=== PATIENT | female | born 2000 | race Caucasian/White ===

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

== ENCOUNTER 2021-05-31 03:30 | Outpatient (CLI) | payer OTHER, SELFPAY ==
[2021-05-31 10:28] LABS: HCT 40.8 % (36.0-46.0); HGB 14.1 g/dL (11.2-15.7); MCH 30.3 pg (27.0-33.0); MCHC 34.6 % (32.0-36.0); MCV 87.6 fL (80-95); Platelet Count 231 10^3/uL (130-400); RBC 4.66 10^6/uL (3.93-5.22); RDW 12.2 % (11.7-14.6); RDW-SD 39.4 fL; WBC 5.32 10^3/uL (4.4-10.8)
[2021-05-31 12:34] LABS: Source Nasal/Nares
[2021-05-31 16:48] LABS: COVID-19 PCR Negative (Negative)
== END 2021-05-31 03:31 | disposition home or self-care (01) ==
LOC: LBO 03:31
PROVIDERS: PCP Internal Medicine; Visit Provider Obstetrics & Gynecology
DX: T83.89XA Other specified complication of genitourinary prosthetic devices, implants and grafts, initial encounter (principal); Z20.822 Contact with and (suspected) exposure to COVID-19; Z01.818 Encounter for other preprocedural examination; Z01.812 Encounter for preprocedural laboratory examination
CPT/HCPCS: 36415; 85027; 86850; 86900; 86901; 87635

== ENCOUNTER 2021-06-02 06:19 | Day surgery (SDC) | payer OTHER, SELFPAY ==
[2021-06-02] VITALS (8 sets, daily range): BP systolic 93–125; BP diastolic 50–64; PULSE 66–101; RESP 16–22; TEMP 36.2–36.7; O2SAT 96–100; BMI 17.9
--- NOTE | 2021-06-02 07:07 | W.ANESPRE ---
General Info Date of Service Date Performed: 06/02/21 Height: 5 ft 7.5 in Weight: 52.6 kg Body Mass Index (BMI): 17.9 Surgical Procedure: Operation Date: 06/02/21 07:40 Proposed Procedures Side Surgeon p Diagnostic, POSSIBLE OPERATIVE LAPAROSCOPY DO martin Simon HYSTEROSCOPY DO martin Simon REMOVAL OF iud Cesilia Vargas DO Meds Allergies and Home Medications Allergies Allergy/AdvReac Type Severity Reaction Status Date / Time animal dander Allergy Itchy Eyes Verified 06/02/21 06:31 No Known Drug Allergies Allergy Verified 06/02/21 06:31 Home Medication Medication Instructions Recorded copper 380 square mm intrauterine 1 device INTRAUTERINE ONCE 04/15/21 device norgestimate 0.25 mg-ethinyl 1 tab PO DAILY #84 tab 04/19/21 estradiol 35 mcg tablet buspirone 30 mg PO BID 05/31/21 cholecalciferol (vitamin D3) 2,000 mcg PO DAILY 05/31/21 multivitamin 1 tab PO DAILY 05/31/21 sertraline 200 mg PO HS 05/31/21 Current Visit Medications: Current Medications Generic Name Dose Route Start Last Admin Trade Name Freq PRN Reason Stop Dose Admin Ringer's Solution 1,000 mls @ 125 mls/hr 06/02/21 06:00 IV 07/01/21 23:59 INFUSION MAULIK Doxycycline Hyclate 100 mg/ 100 mls @ 100 mls/hr 06/02/21 06:00 Sodium Chloride IVPB 06/02/21 16:00 PREOP MAULIK Sodium Chloride 1,000 mls @ 125 mls/hr 06/02/21 07:00 Saline 1000ml Bag IV INFUSION MAULIK IV Miscellaneous Supplies 1 each 06/02/21 06:00 Iv Access IV 07/01/21 23:59 DIRECTED MAULIK Sodium Chloride 0 ml 06/02/21 06:00 Normal Saline Flush 10 Ml Syr IV 07/01/21 23:59 PRN PRN Sodium Chloride 0 ml 06/02/21 06:00 Normal Saline 10 Ml Vial IJ 07/01/21 23:59 DIRECTED PRN Sterile Water 0 ml 06/02/21 06:00 Water,Injection,Sterile 10 Ml Vial IJ 07/01/21 23:59 DIRECTED PRN PFSH Active Problems Active Problems: Problem Status Onset Code IUD complication T83.9XXA Medical History Medical History Anxiety IUD complication OCD (obsessive compulsive disorder) Tobacco Smoking/Tobacco Use Status: Never Alcohol Alcohol Intake: never Substance Use Substance use type: does not use Vital Signs and Lab Results Vital Signs Most Recent Vital Signs in EMR: Most Recent Vital Signs Temp Pulse Resp BP Pulse Ox 36.7 C 72 18 104/62 97 06/02/21 06:33 06/02/21 06:33 06/02/21 06:33 06/02/21 06:33 06/02/21 06:33 Point of Care Results Point of Care Results: POC- Test(urine) Negative 06/02/21 06:52 Lab Results Blood Type / Crossmatch: Patient ABO/Rh O Positive 05/31/21 10:20 05/31/21 Antibody Screen NEGATIVE 05/31/21 10:20 05/31/21 Complete Blood Count: White Blood Count 5.32 10^3/uL (4.4-10.8) 05/31/21 10:20 05/31/21 Red Blood Count 4.66 10^6/uL (3.93-5.22) 05/31/21 10:20 05/31/21 Hemoglobin 14.1 g/dL (11.2-15.7) 05/31/21 10:20 05/31/21 Hematocrit 40.8 % (36.0-46.0) 05/31/21 10:20 05/31/21 Platelet Count 231 10^3/uL (130-400) 05/31/21 10:20 05/31/21 Complete Metabolic Panel: No Data to Display Liver Function Panel: No Data to Display Coagulation Panel: No Data to Display Cardiac Panel: No Data to Display Arterial Blood Gas: No Data to Display Venous Blood Gas: No Data to Display Pancreas Panel: No Data to Display Thyroid Panel: No Data to Display Infectious Disease: Coronavirus (COVID-19)(PCR) Negative (Negative) 05/31/21 10:31 05/31/21 Coronavirus 2019 Source Nasal/Nares 05/31/21 10:31 05/31/21 Blood Cultures: No Data to Display Toxicology Panel: No Data to Display Panel: No Data to Display Anesthesia Assessment and Plan Anesthesia History Personal History: No History of Anesthesia Complications Family History: No Family History of Anesthesia Complications Exercise Tolerance Exercise Tolerance: Metabolic Equivalents>4 Pertinent Negatives Pertinent Negatives: No Symptoms of GERD, No Major Cardiovascular Symptoms or Complaints, No Major Pulmonary Symptoms or Complaints and No History of CVA/TIA Cardiac & Pulmonary Exam Cardiac Exam: Normal S1/S2 Heart Sounds Pulmonary Exam: Clear Bilateral Breath Sounds Airway Exam Known Difficult Airway: No Mallampati Class: 1 Mouth Opening: Normal (> 3cm) Thyromental Distance: Greater than 3 cm Neck Range of Motion: Full ROM Neck Circumference: Normal Teeth Condition: Normal Dentition ASA Classification ASA Score: ASA 1 Emergency Case?: No NPO Status NPO Status: NPO Clears >2 hours, Solids >8 hours Status Status: Negative HCG Anesthesia Plan Resuscitation Status: Full Code Anesthesia Technique: General Anesthesia Airway Planned: Endotracheal Tube Monitors Used: Standard Monitors
[2021-06-02] MEDS: DOXYCYCLINE 100 MG in Normal Saline 100 ML IVPB (07:15)
[2021-06-02] MEDS: Normal Saline 1,000 ML 125 ML IV (07:17)
[2021-06-02] MEDS: Bupivacaine 0.5% Pres-Free 30 ML VIAL (08:00)
--- NOTE | 2021-06-02 08:40 | ROE_ITS ---
Date of service: 06/02/21 Time of Service: 08:40 Operative Note Operative Note DATE OF PROCEDURE: 06/02/21 PRE-OP DIAGNOSIS: Completion of intrauterine device with migration. Desires replacement POST-OP DIAGNOSIS: same PROCEDURE: Diagnostic laparoscopy with ParaGard IUD. Placement of Aliya IUD SURGEON: Cesilia Vargas SEISMIC PROSPECTING OBSERVER HELPER: Melida Phelan ANESTHESIA TYPE: General LMA/ETT Refer to Anesthesia Record ESTIMATED BLOOD LOSS: 5 PATHOLOGY: none sent COMPLICATIONS: None Patient was transported to: same day Patient's condition: stable Implants: Aliya IUD Lot [id number], expiration November 2022 Indications: Patient has been seen in the office for evaluation of a migration of her intrauterine device. This had been placed previously at another facility. Ultrasound confirmed malpositioned IUD with the right arm penetrating right fundus of the uterus. In the, the risk benefits and alternatives diagnostic laparoscopy to ensure the IUD did not penetrate the serosal surface and cause inflammatory response along with removal of intrauterine device and replacement Findings: Normal-appearing tubes, ovaries, uterus. No indication of serosal penetration of the migrated IUD. Intrauterine device is easily removed. Aliya IUD replaced Procedure Description: Patient is running where she is placed in the dorsal supine position. Endotracheal intubation performed for the administration of general anesthesia with ease. She was then placed in the modified dorsolithotomy position with Alexander stirrups and draped in usual sterile fashion. Bladder was drained for approximately 100 cc. Exam under anesthesia. Speculum was inserted into the vaginal vault. IUD strings identified. Single- tooth tenaculum the cervix with manipulation. At this point the abdomen Marcaine was used local area. A 5 mm incision was made. Varies needle was directly inserted and pneumoperitoneum maximum pressure 15 mmHg of CO2 gas. Once pneumoperitoneum created trocar was placed, direct visualization. There is no evidence of intra-abdominal trauma. Uterus appeared smooth and regular without evidence of adhesions. Both fallopian tubes and ovaries were normal. At this point, without evidence of penetration through the serosal surface of the uterus, attention was turned to the vaginal vault. Speculum was placed and IUD strings grasped. Her ParaGard IUD was removed without difficulty. Uterus sounded to 6 cm. Aliya IUD was then inserted and strings cut to 3 cm. At this point, speculum was removed. Procedure was terminated. Discontinued and all instruments were removed from the abdomen. Infraumbilical skin incision was closed with 4-0 Monocryl suture and skin affix. Patient tolerated the procedure without difficulty. EBL: 5 mL Complications: None apparent Findings: Normal-appearing tubes ovaries and uterus. Removal of ParaGard IUD. Placement of Aliya IUD.
--- NOTE | 2021-06-02 09:11 | W.ANESPOSTOP ---
Postoperative Evaluation Date, Time and Location Date Performed: 06/02/21 Time Performed: 09:11 Patient Location: PACU Vital Signs Most Recent Imported Vital Signs: Most Recent Vital Signs Temp Pulse Resp BP Pulse Ox 36.5 C 77 16 107/61 100 06/02/21 09:01 06/02/21 09:01 06/02/21 09:01 06/02/21 09:01 06/02/21 09:01 Pain Score Most Recent Pain Score: Most Recent Pain Score Pain Level 5 06/02/21 09:01 Assessment Mental Status: Awake (Alert & Oriented to Patient Baseline) Airway and Respiratory Function: Patent airway with normal (patient baseline) respiratory exam Cardiovascular Function: Hemodynamically Stable Hydration Status: Adequately Hydrated Nausea & Vomiting: No Nausea or Vomiting Pain: Pt. Denies Any Pain Peripheral Nerve Block: Patient did not receive a nerve block
[2021-06-02] MEDS: HYDROcodone 5/Acetaminophen 325 TAB PO (10:08)
== END 2021-06-02 10:55 | disposition home or self-care (01) ==
PROVIDERS: PCP Internal Medicine; Visit Provider Obstetrics & Gynecology
PROC: (CPT 49320; principal; 2021-06-02 07:30)
PROC: 0UDB8ZZ Extraction of Endometrium, Via Natural or Artificial Opening Endoscopic (ICD-10-PCS; CPT 58558; 2021-06-02 07:30)
PROC: (CPT 49320; 2021-06-02 07:30)
DX: T83.32XA Displacement of intrauterine contraceptive device, initial encounter (principal); Z98.890 Other specified postprocedural states
CPT/HCPCS: 49320; 58301; 58300; 81025; J1100; J1885; J2001; J2250; J2405; J2704

== ENCOUNTER 2021-09-05 14:51 | Outpatient (REF) | payer OTHER, SELFPAY | END 2021-09-05 14:52 | disposition home or self-care (01) | LOC: LBN 14:51 | PROVIDERS: PCP Internal Medicine; Visit Provider Obstetrics & Gynecology | DX: R30.0 Dysuria (principal) | CPT/HCPCS: 87077; 87086; 87186 ==

== ENCOUNTER 2022-01-20 12:46 | Outpatient (REF) | payer OTHER, SELFPAY | END 2022-01-20 12:47 | disposition home or self-care (01) | LOC: LBN 12:46 | PROVIDERS: PCP Internal Medicine; Visit Provider Obstetrics & Gynecology | DX: R30.0 Dysuria (principal) | CPT/HCPCS: 87077; 87086; 87186 ==

== ENCOUNTER 2022-05-12 14:28 | Outpatient (REF) | payer OTHER, SELFPAY | END 2022-05-12 14:29 | disposition home or self-care (01) | LOC: LBN 14:28 | PROVIDERS: PCP Internal Medicine; Visit Provider Nurse Practitioner Family | DX: R30.0 Dysuria (principal) | CPT/HCPCS: 87077; 87086; 87186 ==

== ENCOUNTER 2022-06-02 11:39 | Outpatient (CLI) | payer OTHER, SELFPAY ==
[2022-06-05 10:48] LABS: HBs Antibody, Quant <3.1 mIU/mL (See Note); Hepatitis B Surface Ab Negative (See Note)
[2022-06-05 11:35] LABS: Hepatitis C Ab w Rflx HCV PCR Negative (Negative)
[2022-06-05 20:31] LABS: TB Interpretation Negative (Negative)
== END 2022-06-02 11:40 | disposition home or self-care (01) ==
LOC: LBO 11:39
PROVIDERS: PCP Internal Medicine; Visit Provider Nurse Practitioner Family
DX: Z11.59 Encounter for screening for other viral diseases (principal); Z02.89 Encounter for other administrative examinations
CPT/HCPCS: 36415; 86706; 86803; 86480

== ENCOUNTER 2022-06-02 12:04 | Outpatient (REF) | payer OTHER, SELFPAY ==
--- NOTE | 2022-06-02 11:15 | PAPFT_PTH ---
PATIENT: Jackie Garrett LOC: [facility]#:[id number] AGE/SX: 22/F ROOM: RE06/02/[address]: Magdalena Man : 2000 BED: DIS: 06/02/2022 SPEC #: [id number] RECD: 06/02/22 16:51 STATUS: JAZ REHortencia #: [id number] DEAN: 06/02/22 11:[address]: Magdalena Man DEPT: [facility] Cytology RECD BY: Tracy Cisse ENTERED: 06/02/22 16:51 SP TYPE: PAPFT OTHR DR: Rocio Frank Tissues: 1 - CX/ENDOCX FOR PAP SMEARS Procedures: PAP THIN PREP/[facility] Screening Comments: [id number] (CHLAMYDIA/GC)
[2022-06-05 13:54] LABS: Chlamydia Result Negative (Negative); GC Result Negative (Negative)
== END 2022-06-02 12:05 | disposition home or self-care (01) ==
LOC: NCHCN 12:04
PROVIDERS: PCP Family Medicine; Visit Provider Nurse Practitioner Family
DX: Z11.3 Encounter for screening for infections with a predominantly sexual mode of transmission (principal); Z12.4 Encounter for screening for malignant neoplasm of cervix; Z00.00 Encounter for general adult medical examination without abnormal findings; Z01.419 Encounter for gynecological examination (general) (routine) without abnormal findings
CPT/HCPCS: 87491; 87591; 88142